=== PATIENT | male | born 1970 | race Caucasian/White ===

== ENCOUNTER 2019-12-15 05:48 | Day surgery (SDC) | payer BC, OTHER ==
[2019-12-12 09:14] VITALS: BP 108/77
[~2019-12-15] VITALS: Ht 198.1 cm; Wt 221.0 kg
[~2019-12-15 05:48] MED LIST: ALPR1TAB2 PO
[2019-12-15] MEDS ORDERED: LACTATED RINGERS 1,000 ML IV SCH (06:36)
[2019-12-15] MEDS ORDERED: BUPIVACAINE/PF-EPI 0.5% 1:200K ONE ×2 (06:46→07:00)
[2019-12-15] MEDS ORDERED: LIDOCAINE 1%, 20ML ONE (06:47)
[2019-12-15] MEDS ORDERED: methylPREDNISolone *ACETATE* 40 MG/ML ONE (06:47)
[2019-12-15] MEDS ORDERED: MIDAZOLAM 1 MG/ML, 2ML ONE (06:51)
[2019-12-15] MEDS ORDERED: LIDOCAINE-MPF 2% ,5ML ONE (06:51)
[2019-12-15] MEDS ORDERED: FENTANYL PF 100 MCG/2ML ONE (06:51)
[2019-12-15] MEDS ORDERED: PROPOFOL 10 MG/ML, 20ML ONE (06:51)
[2019-12-15] MEDS ORDERED: DEXAMETHASONE 4 MG/ML, 1ML ONE ×2 (06:52)
[2019-12-15] MEDS ORDERED: ONDANSETRON 2MG/ML, 2ML ONE (06:52)
[2019-12-15] MEDS ORDERED: CHLORHEXIDINE 15 ML UDC MM ONE (07:00)
[2019-12-15] MEDS ORDERED: SUCCINYLCHOLINE 20 MG/ML, 10ML ONE (07:09)
[2019-12-15] MEDS ORDERED: ROCURONIUM 10 MG/ML,10ML ONE (07:28)
[2019-12-15] MEDS ORDERED: CEFAZOLIN 1,000 MG ONE (07:28)
[2019-12-15] MEDS ORDERED: PHENYLEPHRINE 10 MG/ML ONE (07:28)
[2019-12-15] MEDS ORDERED: NEOSTIGMINE 1 MG/ML, 10ML ONE (08:10)
[2019-12-15] MEDS ORDERED: GLYCOPYRROLATE 0.2MG/1ML, 5ML ONE (08:10)
[2019-12-15] MEDS ORDERED: KETOROLAC 30 MG/1 ML IVPush PRN (10:30)
[2019-12-15] MEDS ORDERED: HYDROcodone/APAP 7.5-325MG/15ML UDC PO PRN (10:30)
[2019-12-15] MEDS ORDERED: morphine SULFATE 10 MG/ML, 1ML IVPush PRN (10:30)
[2019-12-15] MEDS ORDERED: FENTANYL PF 100 MCG/2ML IV PRN (10:30)
[2019-12-15] MEDS ORDERED: PROMETHAZINE 25 MG/ML, 1ML IVPush PRN (10:30)
== END 2019-12-15 13:50 | disposition home or self-care (01) ==
LOC: OUT 05:48
PROVIDERS: ATTEND Podiatrist Foot & Ankle Surgery
DX: M20.41 Other hammer toe(s) (acquired), right foot (principal); M20.42 Other hammer toe(s) (acquired), left foot; M24.575 Contracture, left foot; M24.574 Contracture, right foot; M77.41 Metatarsalgia, right foot; M77.42 Metatarsalgia, left foot; M25.774 Osteophyte, right foot; M25.775 Osteophyte, left foot; F41.9 Anxiety disorder, unspecified; E66.01 Morbid (severe) obesity due to excess calories; Z68.41 Body mass index [BMI] 40.0-44.9, adult; Z79.899 Other long term (current) drug therapy
CPT/HCPCS: 28285; 28308; 28755; 73660; C1713; C1762; J0330; J0690; J1030; J1100; J2250; J2370; J2405; J2704; J2710; J3010; J7120; U0001; 76000